=== PATIENT | female | born 1985 | race Hispanic/Latino ===

== ENCOUNTER 2025-06-15 20:07 | Emergency (ER) | payer OTHER ==
[~2025-06-15] VITALS: Ht 165.1 cm; Wt 79.4 kg
[2025-06-15 20:13] VITALS: BP 130/67; PULSE 96; RESP 16; TEMP 98; O2SAT 99
--- NOTE | 2025-06-15 20:15 | NUR ---
NO MED HISTORY
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
--- NOTE | 2025-06-15 20:25 | NUR ---
TAKEN TO CT SCAN
--- NOTE | 2025-06-15 20:43 | NUR ---
BACK FROM CT SCAN
[2025-06-15] MEDS: CYCLOBENZAPRINE HCL 10 MG TABLET PO ONE (21:07)
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
[2025-06-15] MEDS ORDERED: IBUP-1492 PO (21:18)
[2025-06-15] MEDS ORDERED: CYCL7.5T27 PO (21:18)
[2025-06-15] MEDS ORDERED: ACET-2247 PO (21:18)
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
== END 2025-06-15 22:10 | disposition home or self-care (01) ==
LOC: EDBD 20:07 → EDH 20:07
DX: M54.2 Cervicalgia (principal); R51.9 Headache, unspecified; M54.50 Low back pain, unspecified; M62.838 Other muscle spasm; M51.369 Other intervertebral disc degeneration, lumbar region without mention of lumbar back pain or lower extremity pain; V64.5XXA Driver of heavy transport vehicle injured in collision with heavy transport vehicle or bus in traffic accident, initial encounter; Y93.I9 Activity, other involving external motion; Y92.488 Other paved roadways as the place of occurrence of the external cause; Y99.8 Other external cause status
CPT/HCPCS: 99285; 70450; 96374; 96375; 72125; 72131; J1885; J2270